=== PATIENT | female | born 1980 | race African-American/Black ===

== ENCOUNTER 2017-01-03 19:15 | Emergency (ER) | payer OTHER ==
[2017-01-03 20:41] LABS: URINE SOURCE CLEAN CATCH
[2017-01-03 20:50] LABS: URINE APPEARANCE CLOUDY; URINE BILIRUBIN NEG (NEG); URINE BLOOD NEG (NEG); URINE COLOR YELLOW; URINE GLUCOSE NEG (NEG); URINE KETONE NEG (NEG); URINE LEUKOCYTE ESTERASE 2+ (NEG); URINE NITRATE POS (NEG); URINE PH 5.5 (5-8); URINE PROTEIN NEG (NEG)
[2017-01-03 20:52] LABS: CULTURE INDICATED? YES; URINE BACTERIA AUWI 4+ (NEGATIVE); UWBCS1 AUWI 100-200 (0-5)
[2017-01-03 21:03] LABS: URINE SQUAMOUS EPITHELIAL CELL OCCAS /[HPF]
== END 2017-01-03 21:58 | disposition home or self-care (01) ==
LOC: CFTX 19:15 → CED 19:15 → CFTX 19:54
PROVIDERS: Nurse Practitioner
DX: L02.213 Cutaneous abscess of chest wall (principal); N39.0 Urinary tract infection, site not specified; I10 Essential (primary) hypertension; F17.210 Nicotine dependence, cigarettes, uncomplicated; Z23 Encounter for immunization; Z88.8 Allergy status to other drugs, medicaments and biological substances
CPT/HCPCS: 10060; 81003; 84703; 87086; 87088; 87186; 90471; 90715; 99283

== ENCOUNTER → 2017-03-13 | Outpatient (CLI) | payer OTHER ==
--- NOTE | ~2017-03-13 | CR127 ---
[facility] A Service of [facility] RADIOLOGY TEXT RESULTS PATIENT: LOY CLEMENTE LOCATION: [facility] : 78 UNIT #: [id number] AGE: [address]: BRADY ROBERTS SEX: F ORDER DR: [id number] [facility] [address] [place], [place] [address] [id number] MR#: [id number] #: [id number] NAME: LOY CLEMENTE : 1980 SEX: F STUDY DATE/TIME: 03/13/2017 16:15 UNIT: [facility] ROOM: STUDY DESCRIPTION: CR Foot Complete Min 3 View Rt Attending Physician: Steve Jackson Referring Physician: Steve Jackson Ordering Physician: Steve Jackson Primary Care Physician: Julia Huynh M.D. MEDICAL IMAGING REPORT This report is preliminary unless electronic signature is present EXAM 3 views of the right foot. DATE 03/13/2017. HISTORY 37-year-old female with abscess and swelling on the dorsal surface of the foot for 4 months. No known injury. COMPARISON None. FINDINGS Mild soft tissue swelling is thought to be present about the dorsal and plantar surface of the forefoot. However, no subcutaneous gas is identified and no retained radiopaque foreign body is seen. No evidence of osteolysis or periostitis. No fracture. No dislocation. IMPRESSION Mild right forefoot soft tissue swelling without evidence of subcutaneous gas or retained radiopaque foreign body. Osseous structures appear unremarkable. Dictated by... Princess Zhang M.D. THIS IS AN ELECTRONICALLY VERIFIED REPORT Princess Zhang M.D. at 03/16/2017 9:33 PM MATHEUS/melody TD: 03/14/2017 12:48 JOB #: [id number] [facility] A Service of [facility] RADIOLOGY TEXT RESULTS PATIENT: LOY CLEMENTE LOCATION: [facility] : 78 UNIT #: [id number] AGE: [address]: BRADY ROBERTS SEX: F ORDER DR: MEDICAL IMAGING REPORT Page 1 of 1 COPY
== END | disposition home or self-care (01) ==
LOC: CRAD 15:44
DX: M79.671 Pain in right foot (principal); M79.89 Other specified soft tissue disorders
CPT/HCPCS: 73630